=== PATIENT | female | born 1965 | race Caucasian/White ===

== ENCOUNTER 2022-03-07 11:43 | Emergency (ER) | payer MEDICARE, SELFPAY ==
[~2022-03-07] VITALS: Ht 175.3 cm; Wt 81.8 kg
[2022-03-07 11:55] VITALS: BP 142/79
[2022-03-07] MEDS ORDERED: ketorolac trometh. 30mg/ml inj. IV ONE (13:15)
[2022-03-07] MEDS ORDERED: diphenhydrAMINE 50 mg/ml inj IV ONE (13:15)
[2022-03-07] MEDS ORDERED: normal saline 1000ML IV soln IVB ONE (13:15)
[2022-03-07] MEDS ORDERED: metoclopramide 5 mg/ml inj IV ONE (13:15)
== END 2022-03-07 14:27 | disposition home or self-care (01) ==
LOC: ER 11:44
DX: G43.909 Migraine, unspecified, not intractable, without status migrainosus (principal); R11.2 Nausea with vomiting, unspecified; M19.90 Unspecified osteoarthritis, unspecified site; Z88.0 Allergy status to penicillin; Z88.1 Allergy status to other antibiotic agents; Z86.19 Personal history of other infectious and parasitic diseases
CPT/HCPCS: 96361; 96374; 96375; 99284; J1200; J1885; J2765; J7030